=== PATIENT | female | born 1950 | race Caucasian/White ===

== ENCOUNTER 2017-03-27 10:48 | Emergency (ER) | payer MEDICARE ==
[~2017-03-27] VITALS: Ht 162.6 cm; Wt 77.0 kg
[2017-03-27 10:51] VITALS: BP 172/82; PULSE 91; RESP 15; TEMP 97.8; O2SAT 98
[2017-03-27] MEDS ORDERED: LEVOFLOXACIN 750 MG TAB PO ONE (11:45)
[2017-03-27] MEDS ORDERED: predniSONE 20 MG TAB PO ONE (11:45)
--- NOTE | 2017-03-27 11:49 | RADRPT ---
EXAM DATE/TIME: 03/27/2017 11:24 [place] COMPARISON: No previous studies available for comparison. INDICATIONS : Shortness of breath for about 36 hours and cough x 1 week. MEDICAL HISTORY : Lung cancer. SURGICAL HISTORY : None. ENCOUNTER: Initial ACUITY: 1 week PAIN SCORE: 0/10 LOCATION: Bilateral chest FINDINGS: PA and lateral view of the chest demonstrate ill-defined opacity in the mid left lung, only seen on t he frontal view, measuring approximately 5.6 cm in dimension. The right lung is clear. The heart is normal in size. Both hemidiaphragms are well delineated. No CONCLUSION: Ill-defined opacity in the left midlung measuring in excess of 5 cm, not confirmed on lateral view. No priors to evaluate whether this is a new or old finding. Hal Alva MD on March 27, 2017 at 11:45 Board Certified Radiologist. This report was verified electronically.
[2017-03-27] MEDS: RESP: ALBUTEROL 2.5 MG/IPRATROPIUM 0.5 MG NEB (SCH) INH ×2 (12:00→12:30)
[2017-03-27] MEDS ORDERED: VENTAER INH (12:03)
[2017-03-27] MEDS ORDERED: PRED20 PO (12:03)
[2017-03-27] MEDS ORDERED: LEVA750T9 PO (12:03)
--- NOTE | 2017-03-27 12:25 | PD ---
HPI Chief Complaint: Cold / Flu Symptoms Time Seen by Provider: 11:08 Travel History International Travel<30 days: No Contact w/Intl Traveler<30days: No Traveled to known affect area: No History of Present Illness HPI 66-year-old female visiting from [place] presents emergency department with one-week history of increasing cough and wheezing. Patient states history of lung cancer for which he has been treated with both chemo and radiation, with remission since last May. Patient denies any significant fever with her current illness. She denies fever, chills, nausea, vomiting, or other symptoms. Patient denies any significant chest pain patient states he typically does not use any type of inhalers for her lungs. Patient has history of allergies to penicillin, sulfa, and lisinopril. PFSH Past Medical History Hx Anticoagulant Therapy: No Cardiovascular Problems: No Chemotherapy: Yes (2017 lung CA) Cerebrovascular Accident: No Diabetes: No Respiratory: No ?: Not Social History Alcohol Use: No Tobacco Use: No Substance Use: No Allergies-Medications (Allergen,Severity, Reaction): Coded Allergies: Penicillins (Verified Allergy, Severe, Shortness of Breath, 03/27/17) lisinopril (Verified Allergy, Severe, 03/27/17) ANGIOEDEMA Sulfa (Sulfonamide Antibiotics) (Verified Allergy, Intermediate, Rash, ) Reported Meds & Prescriptions Reported Meds & Active Scripts Active Ventolin Hfa 18 GM Inh (Albuterol Sulfate) 90 Mcg/Act Aer 2 Puff INH Q4-6H PRN Prednisone 20 Mg Tab 20 Mg PO DAILY 7 Days Levaquin (Levofloxacin) 750 Mg Tablet 750 Mg PO DAILY 7 Days Review of Systems Except as stated in HPI: all other systems reviewed are Neg General / Constitutional: No: Fever, Chills Eyes: No: Visual changes HENT: No: Headaches, Vertigo, Lightheadedness, Sore Throat, Rhinitis, Rhinorrhea, Congestion, Nosebleed, Neck Stiffness, Neck Pain, Masses, Dental Difficulties, Earache Cardiovascular: No: Chest Pain or Discomfort Respiratory: Positive: Cough, Shortness of Breath, Wheezing, No: Sneezing, Orthopnea, Hemoptysis, Stridor, Night Sweats, Pleuritic Pain Gastrointestinal: No: Nausea, Vomiting, Diarrhea, Abdominal Pain Genitourinary: No: Dysuria Musculoskeletal: No: Pain Skin: No Rash Neurologic: No: Weakness Psychiatric: No: Depression Endocrine: No: Polydipsia Hematologic/Lymphatic: No: Easy Bruising Physical Exam Narrative GENERAL: Patient appears in no obvious distress SKIN: Warm and dry. Normal color. Normal turgor HEAD: Atraumatic. Normocephalic. EYES: Pupils equal and round. No scleral icterus. No injection or drainage. ENT: No nasal bleeding or discharge. Mucous membranes pink and moist. TMs are clear bilaterally. Pharynx is clear. Airways patent NECK: Trachea midline. Supple and nontender CARDIOVASCULAR: Regular rate and rhythm. RESPIRATORY: No accessory muscle use. Diffuse wheezes and rhonchi throughout to auscultation. Breath sounds equal bilaterally. GASTROINTESTINAL: Abdomen soft, non-tender, nondistended. Hepatic and splenic margins not palpable. MUSCULOSKELETAL: Extremities without clubbing, cyanosis, or edema. No obvious deformities. NEUROLOGICAL: Awake and alert. No obvious cranial nerve deficits. Motor grossly within normal limits. Five out of 5 muscle strength in the arms and legs. Normal speech. PSYCHIATRIC: Appropriate mood and affect; insight and judgment normal. Data Data Last Documented VS Vital Signs Date Time Temp Pulse Resp B/P (MAP) Pulse Ox O2 Delivery O2 Flow Rate FiO2 03/27/17 11:52 30 03/27/17 10:51 97.8 91 172/82 (112) 98 Orders Orders Chest, Pa & Lat (03/27/17 11:09) Albuterol-Ipratropium Neb (Duoneb Neb) (03/27/17 11:45) Levofloxacin (Levaquin) (03/27/17 11:45) Prednisone (Deltasone) (03/27/17 11:45) Radiology Film Requests (03/27/17 ) [facility] Medical Decision Making Medical Screen Exam Complete: Yes Emergency Medical Condition: Yes Differential Diagnosis Bronchitis. Wheezing. Pneumonia. Recurrent lung cancer Narrative Course Chest x-ray shows: Ill-defined opacity in the left midlung measuring in excess of 5 cm, not confirmed on lateral view. No priors to evaluate whether this is a new or old finding. Patient given Levaquin 750 mg p.o. now Patient given 60 mg prednisone p.o. now Patient given DuoNeb 3 now Patient feels improved after the above treatment. Patient will be continued on Levaquin 750 daily 7 days per Patient continued on prednisone 20 mg daily 7 days per Patient continued on albuterol metered-dose inhaler 2 puffs every 4-6 hours as needed #1 Copy of the chest x-ray is given to the patient. Patient should follow with her primary and oncologist when she returns to [place] Diagnosis Primary Impression: Acute bronchitis with chronic obstructive pulmonary disease (COPD) Referrals: Oncologist Patient Instructions: General Instructions, How to Use a Metered-Dose Inhaler ( DC), Prednisone (By mouth), Wheezing (ED) Additional Instructions: Chest x-ray shows: Ill-defined opacity in the left midlung measuring in excess of 5 cm, not confirmed on lateral view. No priors to evaluate whether this is a new or old finding. Patient given Levaquin 750 mg p.o. now Patient given 60 mg prednisone p.o. now Patient given DuoNeb 3 now Patient feels improved after the above treatment. Patient will be continued on Levaquin 750 daily 7 days per Patient continued on prednisone 20 mg daily 7 days per Patient continued on albuterol metered-dose inhaler 2 puffs every 4-6 hours as needed #1 Copy of the chest x-ray is given to the patient. Patient should follow with her primary and oncologist when she returns to [place] Med/Other Pt SpecificInfo: Prescription(s) given Scripts Albuterol 18 GM Inh (Ventolin Hfa 18 GM Inh) 90 Mcg/Act Aer 2 PUFF INH Q4-6H Y for SHORTNESS OF BREATH, #1 INHALER 0 Refills Prov: Luis Yi MD 03/27/17 Prednisone (Prednisone) 20 Mg Tab 20 MG PO DAILY for 7 Days, #7 TAB 0 Refills Prov: Luis Yi MD 03/27/17 Levofloxacin (Levaquin) 750 Mg Tablet 750 MG PO DAILY for Infection for 7 Days, #7 TAB 0 Refills Prov: Luis Yi MD 03/27/17 Disposition: 01 DISCHARGE HOME Condition: Stable Nabil Lopez Mar 27, 2017 12:25
== END 2017-03-27 13:01 | disposition home or self-care (01) ==
LOC: NEPK 10:48
DX: J44.0 Chronic obstructive pulmonary disease with (acute) lower respiratory infection (principal); J20.9 Acute bronchitis, unspecified; Z85.118 Personal history of other malignant neoplasm of bronchus and lung
CPT/HCPCS: 71046; 94640; 94664; 99283; J7512